=== PATIENT | female | born 1950 | race Caucasian/White ===

== ENCOUNTER 2016-11-28 19:10 | Emergency (ER) | payer MEDICARE, OTHER ==
[~2016-11-28] VITALS: Ht 152.4 cm; Wt 79.4 kg
[2016-11-28] MEDS ORDERED: APIDRA SOL100 UNIT/1 SUBCUT (20:30)
[2016-11-28] MEDS ORDERED: ASPIRIN81 MG PO (20:31)
[2016-11-28] MEDS ORDERED: KLONOPIN0.5 MG PO (20:31)
[2016-11-28] MEDS ORDERED: LIPITOR80 MG PO (20:31)
[2016-11-28] MEDS ORDERED: CYMBALTA60 M1 PO (20:32)
[2016-11-28] MEDS ORDERED: GLUCOTROL XL10 MG PO (20:33)
[2016-11-28] MEDS ORDERED: THERA M PLUS T1 EACH PO (20:34)
[2016-11-28] MEDS ORDERED: REQUIP0.5 MG PO (20:34)
[2016-11-28] MEDS ORDERED: GLUCOPHAGE1000 MG PO (20:34)
[2016-11-28] MEDS ORDERED: VALSARTAN-HCTZ1 EAC2 PO (20:36)
== END 2016-11-28 20:15 | disposition short-term general hospital (02) ==
LOC: ER 19:10
DX: S86.911A Strain of unspecified muscle(s) and tendon(s) at lower leg level, right leg, initial encounter (principal); E11.9 Type 2 diabetes mellitus without complications; X58.XXXA Exposure to other specified factors, initial encounter
CPT/HCPCS: J2270